=== PATIENT | male | born 1965 | race Caucasian/White ===

== ENCOUNTER → 2025-09-10 | Outpatient (CLI) | payer OTHER ==
[~2025-09-10] MED LIST: IOHEXOL 350 MG/ML 100 ML VIAL IV ONE; SODIUM CHLORIDE 0.9% 100 ML BAG IV ONE; SODIUM CHLORIDE 0.9% 100 ML IV ONE
== END | disposition home or self-care (01) ==
LOC: CT 16:30
PROVIDERS: ATTEND Internal Medicine
DX: R91.1 Solitary pulmonary nodule (principal); M47.819 Spondylosis without myelopathy or radiculopathy, site unspecified; I77.819 Aortic ectasia, unspecified site